=== PATIENT | male | born 1975 | race Caucasian/White ===

== ENCOUNTER 2022-06-25 07:40 | Outpatient (CLI) | payer BC, SELFPAY | END 2022-06-25 07:41 | disposition home or self-care (01) | LOC: NFLDREF 06-26 06:01 | PROVIDERS: PCP Family Medicine; Referring Provider Family Medicine; Visit Provider Family Medicine | DX: Z00.00 Encounter for general adult medical examination without abnormal findings (principal); E55.9 Vitamin D deficiency, unspecified; E78.5 Hyperlipidemia, unspecified; E66.9 Obesity, unspecified; R73.01 Impaired fasting glucose | CPT/HCPCS: 80053; 80061; 82306 ==

== ENCOUNTER 2022-08-03 08:01 | Outpatient (CLI) | payer BC, SELFPAY | END 2022-08-03 08:02 | disposition home or self-care (01) | LOC: OP CLINIC 08:03 | PROVIDERS: PCP Family Medicine; Visit Provider Surgery | DX: Z12.11 Encounter for screening for malignant neoplasm of colon (principal); K63.5 Polyp of colon | CPT/HCPCS: 45380; 88305; J2250; J3010 ==

== ENCOUNTER 2023-07-04 07:35 | Outpatient (CLI) | payer BC, SELFPAY | END 2023-07-04 07:36 | disposition home or self-care (01) | LOC: NFLDREF 07-08 08:34 | PROVIDERS: PCP Family Medicine; Referring Provider Family Medicine; Visit Provider Family Medicine | DX: E78.5 Hyperlipidemia, unspecified (principal); E55.9 Vitamin D deficiency, unspecified; E66.9 Obesity, unspecified; R73.01 Impaired fasting glucose | CPT/HCPCS: 80053; 80061; 82306 ==

== ENCOUNTER 2025-03-24 09:40 | Outpatient (CLI) | payer OTHER, SELFPAY ==
[2025-03-24 10:27] LABS: PCR FLU A Negative PCR FLU A (Negative); PCR FLU B Negative PCR FLU B (Negative); SARS PCR* POSITIVE SARS-CoV-2 (Negative)
== END 2025-03-24 09:41 | disposition home or self-care (01) ==
LOC: NFLDUCREF 09:40
PROVIDERS: PCP Family Medicine; Visit Provider Physician Assistant Surgical
DX: R68.89 Other general symptoms and signs (principal)
CPT/HCPCS: 87636